=== PATIENT | male | born 1955 | race Caucasian/White ===

== ENCOUNTER 2021-02-14 12:48 | Emergency (ER) | payer MEDICARE ==
[2021-02-14] MEDS ORDERED: Ketorolac Tromethamine 15 MG/ML VIAL ONE (15:52)
[2021-02-14] MEDS ORDERED: methylPREDNISolone Sod Succ 40 MG VIAL ONE (15:54)
[2021-02-14] MEDS ORDERED: predniSONE 20 MG TAB ONE (15:55)
== END 2021-02-14 16:18 | disposition home or self-care (01) ==
LOC: CSHERS 12:48
DX: M10.9 Gout, unspecified (principal); M19.071 Primary osteoarthritis, right ankle and foot; I13.0 Hypertensive heart and chronic kidney disease with heart failure and stage 1 through stage 4 chronic kidney disease, or unspecified chronic kidney disease; I50.9 Heart failure, unspecified; N18.9 Chronic kidney disease, unspecified; E78.5 Hyperlipidemia, unspecified
CPT/HCPCS: 96372; J1885; J2920; J7512

== ENCOUNTER 2021-10-15 17:07 | Observation (INO) | payer MEDICARE, OTHER ==
[2021-10-15 18:10] LABS: #Basophils 0.1 10x3/uL (0.0-0.2); #Eosinphils 0.3 10x3/uL (0.0-0.5); #Monocytes 1.2 10x3/uL (0.0-1.1); #Neutrophils 7.6 10x3/uL (1.5-8.4); %Basophils 0.6 % (0.0-2.0); %Eosinophils 2.4 % (0.0-6.0); %Lymphocytes 23.1 % (18.0-47.0); %Monocytes 9.6 % (0.0-10.0); %Neutrophils 61.9 % (40.0-75.0); Hemoglobin 14.3 g/dL (13.5-17.5); Mean Corpuscular HGB CONC 33.6 g/dL (32.0-36.0); Mean Corpuscular Volume 92.2 fl (81.2-95.1); Platelet Count 231 10x3/uL (150-450); RBC Distribution Width 13.7 % (11.5-14.5); Red Blood Cell (RBC) Count 4.61 10x6/uL (4.32-5.72); White Blood Cell (WBC) Count 12.4 10x3/uL (3.5-10.5)
[2021-10-15 18:22] LABS: ALT (SGPT) 12 U/L (8-55); AST (SGOT) 16 U/L (5-34); Albumin 4.3 g/dL (3.4-4.8); Alkaline Phosphatase 71 U/L (40-110); Anion Gap 16 mmol/L (10-20); BUN (Urea Nitrogen) 50 mg/dL (8.4-25.7); Bilirubin, Total 1.1 mg/dL (0.2-1.2); Calc. Creatinine Clearance 0 mL/min (70-130); Calcium 8.8 mg/dL (7.8-10.44); Carbon Dioxide 23 mmol/L (23-31); Chloride 97 mmol/L (98-107); Globulin 2.5 g/dL (2.4-3.5); Glucose 116 mg/dL (80-115); Potassium 4.6 mmol/L (3.5-5.1); Protein, Total 6.8 g/dL (5.8-8.1); Sodium 131 mmol/L (136-145)
[2021-10-15 18:46] LABS: SARS-CoV-2 NAA Rapid Test Not Detected (NotDetected)
[2021-10-15 21:37] LABS: Magnesium 2.2 mg/dL (1.6-2.6)
[2021-10-15 21:43] LABS: Troponin I Less than 0.010 ng/mL (< 0.028)
[2021-10-15] MEDS ORDERED: Carvedilol 6.25 MG TAB PO SCH (21:45)
[2021-10-15] MEDS ORDERED: Simvastatin 10 MG TAB PO SCH (21:45)
[2021-10-15] MEDS ORDERED: Tamsulosin HCl 0.4 MG CAP PO SCH (21:45)
[2021-10-15 21:49] VITALS: BMI 37.3
[2021-10-15] MEDS ORDERED: Sodium Chloride 0.9% 1,000 ML IV SCH (22:00)
[2021-10-16 04:35] LABS: Anion Gap 13 mmol/L (10-20); BUN (Urea Nitrogen) 49 mg/dL (8.4-25.7); Calc. Creatinine Clearance 60 mL/min (70-130); Calcium 8.6 mg/dL (7.8-10.44); Carbon Dioxide 25 mmol/L (23-31); Chloride 98 mmol/L (98-107); Glucose 132 mg/dL (80-115); Potassium 3.9 mmol/L (3.5-5.1); Sodium 132 mmol/L (136-145)
[2021-10-16 04:41] LABS: #Basophils 0.1 10x3/uL (0.0-0.2); #Eosinphils 0.4 10x3/uL (0.0-0.5); #Monocytes 1.2 10x3/uL (0.0-1.1); #Neutrophils 7.2 10x3/uL (1.5-8.4); %Basophils 0.9 % (0.0-2.0); %Eosinophils 2.9 % (0.0-6.0); %Lymphocytes 23.5 % (18.0-47.0); %Monocytes 10.4 % (0.0-10.0); %Neutrophils 60.2 % (40.0-75.0); Hemoglobin 13.2 g/dL (13.5-17.5); Mean Corpuscular HGB CONC 33.8 g/dL (32.0-36.0); Mean Corpuscular Hemoglobin 31.2 pg (27.0-33.0); Mean Corpuscular Volume 92.4 fl (81.2-95.1); Mean Platelet Volume 11.3 fl (7.4-10.4); Platelet Count 200 10x3/uL (150-450); RBC Distribution Width 13.9 % (11.5-14.5); Red Blood Cell (RBC) Count 4.23 10x6/uL (4.32-5.72); White Blood Cell (WBC) Count 11.9 10x3/uL (3.5-10.5)
[2021-10-16] MEDS ORDERED: Carvedilol 6.25 MG TAB PO SCH (07:30)
[2021-10-16] MEDS ORDERED: Potassium Chloride 10 MEQ TAB PO SCH (08:00)
[2021-10-16] MEDS ORDERED: Colchicine 0.6 MG TAB PO SCH (09:00)
[2021-10-16] MEDS ORDERED: Enoxaparin Sodium 40 MG/0.4 ML SYRINGE SC SCH (09:00)
[2021-10-16] MEDS ORDERED: Lisinopril 2.5 MG TAB PO SCH (09:00)
[2021-10-16] MEDS ORDERED: Venlafaxine HCl XR 75 MG CAP PO SCH (09:00)
[2021-10-16] MEDS ORDERED: Spironolactone 25 MG TAB PO SCH (09:00)
[2021-10-16] MEDS ORDERED: Allopurinol 100 MG TAB PO SCH (09:00)
[2021-10-16] MEDS ORDERED: Furosemide 20 MG TAB PO SCH (09:00)
[2021-10-16 12:07] VITALS: BP 103/57; TEMP 98.2
[2021-10-16] MEDS ORDERED: Tamsulosin HCl 0.4 MG CAP PO SCH (21:00)
[2021-10-16] MEDS ORDERED: Simvastatin 10 MG TAB PO SCH (21:00)
[2021-10-17] MEDS ORDERED: Enoxaparin Sodium 30 MG/0.3 ML SYRINGE SC SCH (09:00)
== END 2021-10-16 14:53 | disposition home or self-care (01) ==
LOC: CSHERS 17:07 → CSHTELE 21:34
PROVIDERS: ADMIT Family Medicine; ATTEND Family Medicine
DX: R06.02 Shortness of breath (principal); J84.10 Pulmonary fibrosis, unspecified; I13.0 Hypertensive heart and chronic kidney disease with heart failure and stage 1 through stage 4 chronic kidney disease, or unspecified chronic kidney disease; N18.32 Chronic kidney disease, stage 3b; I50.22 Chronic systolic (congestive) heart failure; E66.9 Obesity, unspecified; M10.9 Gout, unspecified; Z20.822 Contact with and (suspected) exposure to COVID-19; N40.0 Benign prostatic hyperplasia without lower urinary tract symptoms; Z95.810 Presence of automatic (implantable) cardiac defibrillator; Z98.84 Bariatric surgery status; Z79.899 Other long term (current) drug therapy; Z87.891 Personal history of nicotine dependence; E87.6 Hypokalemia
CPT/HCPCS: 71045; 80048; 80053; 83735; 83880; 84484 ×2; 85025 ×2; 93005 ×2; 93306; 96372; 99285; G0378 ×2; U0002; 36415; 93010; J1650; J7050

== ENCOUNTER 2023-08-31 10:45 | Outpatient (CLI) | payer MEDICARE | END 2023-08-31 10:46 | disposition home or self-care (01) | LOC: CSHRAD 10:45 | PROVIDERS: ATTEND Specialist | DX: Z01.818 Encounter for other preprocedural examination (principal); Z95.810 Presence of automatic (implantable) cardiac defibrillator; M54.14 Radiculopathy, thoracic region | CPT/HCPCS: 71046 ==

== ENCOUNTER 2023-09-03 08:43 | Outpatient (CLI) | payer MEDICARE | END 2023-09-03 08:44 | disposition home or self-care (01) | LOC: CSHSPEC 08:43 | PROVIDERS: ATTEND Specialist | DX: M54.14 Radiculopathy, thoracic region (principal); Z95.810 Presence of automatic (implantable) cardiac defibrillator | CPT/HCPCS: 72146 ==